=== PATIENT | female | born 1960 | race Caucasian/White ===

== ENCOUNTER → 2018-12-05 | Outpatient (CLI) | payer BC, OTHER ==
[~2018-12-05] MED LIST: DIPH-911 PO
--- NOTE | 2018-12-05 10:34 | RADIOLOGY IMAGING REPORT ---
FACILITY: [facility] [place] PATIENT NAME: Elo Hummel : 1960 MR: [id number] V: [id number] EXAM DATE: ORDERING PHYSICIAN: RENE WATSON TECHNOLOGIST: Location: [facility] Patient: Elo Hummel : 1960 Visit/Account:[id number] Date of Sevice: 12/05/2018 EXAMINATION: MR SPINE LUMBAR W/O CON INDICATION: Low back pain COMPARISON: None available TECHNIQUE: Multiplane MR imaging was performed through the lumbar spine without contrast. FINDINGS: Vertebral bodies and posterior elements: Normal Conus position/signal: Normal Marrow signal: Benign fatty marrow signal seen within multiple vertebral bodies. Extraspinal structures including psoas muscles/paraspinal soft tissues: No significant finding. L1-2: Normal L2-3: Normal. L3-4: Small disc protrusion within the inferior aspects of both foramen. No canal narrowing. Minima l bilateral foraminal narrowing. L4-5: Posterior left disc annular fissure. Small disc protrusion. Mild facet arthropathy. No canal narrowing. Mild to moderate bilateral foraminal narrowing. L5-S1: Small disc protrusion, moderate facet arthropathy, no canal narrowing. Moderate right and mil d to moderate left foraminal narrowing. IMPRESSION: 1. Mild L4-5 and moderate L5-S1 facet arthropathy. 2. Multilevel foraminal narrowing most pronounced at L4-5 and L5-S1, see level by level comments abo ve. 3. Posterior L4-5 disc annular fissure. 4. Otherwise unremarkable lumbar spine MRI. Report Dictated By: Cesar Acosta MD at 12/05/2018 10:22 AM Report E-Signed By: Cesar Acosta MD at 12/05/2018 10:27 AM WSN:[id number]
== END ==
LOC: MRI 01:13
PROVIDERS: ATTEND Neurological Surgery
DX: M46.96 Unspecified inflammatory spondylopathy, lumbar region (principal); M51.35 Other intervertebral disc degeneration, thoracolumbar region
CPT/HCPCS: 72148

== ENCOUNTER → 2018-12-13 | Outpatient (CLI) | payer BC ==
--- NOTE | 2018-12-13 14:05 | RADIOLOGY IMAGING REPORT ---
FACILITY: PATIENT NAME: Elo Hummel : 1960 MR: [id number] V: [id number] EXAM DATE: ORDERING PHYSICIAN: CRUZ BRAN TECHNOLOGIST: Location: [facility] Patient: Elo Hummel : 1960 Visit/Account:[id number] Date of Sevice: 12/13/2018 PELVIC INDICATION: Enlarged uterus on physical exam, COMPARISON: None Available FINDINGS: Uterus measures 5.5 x 2.7 x 4.1 cm and is homogeneous in echotexture. No mass is identified. Double wall endometrial stripe measures 3 mm and is homogeneous There is no free fluid in the cul-de-sac. Urinary bladder is empty. Pelvic vessels appear unremarkable on this examination. Right ovary measures 1.7 x 1.1 x 2.1 cm and shows normal blood flow . Left ovary measures 2.0 x 1.1 x 2.2 cm and shows normal blood flow . IMPRESSION: 1. Pelvic ultrasound is within normal limits Report Dictated By: Charles Rogers at 12/13/2018 1:56 PM Report E-Signed By: Charles Rogers at 12/13/2018 1:58 PM WSN:[id number]
== END ==
LOC: US 01:33
PROVIDERS: ATTEND Family Medicine
DX: N85.2 Hypertrophy of uterus (principal)
CPT/HCPCS: 76830; 76856

== ENCOUNTER → 2018-12-24 | Outpatient (CLI) | payer BC ==
--- NOTE | 2018-12-25 10:46 | RADIOLOGY IMAGING REPORT ---
FACILITY: [facility] PATIENT NAME: BARBARA HILL : [id number] MR: [id number] V: [id number] EXAM DATE: [id number] ORDERING PHYSICIAN: CRZU BRAN TECHNOLOGIST: Sherry Moreno PROCEDURE: BILATERAL DIGITAL SCREENING MAMMOGRAM WITH CAD ASSISTED INTERPRETATION & 3D TOMOSYNTHESIS REASON FOR STUDY: Screening. COMPARISON: 11/12/14, 11/05/14, 02/21/2012. VIEWS OBTAINED: 2D & 3D full field CC & MLO projections. BREAST DENSITY: The breasts have scattered fibroglandular parenchymal densities. MAMMOGRAM FINDINGS: There are no mammographic findings concerning for malignancy. No significant interval change. IMPRESSION: BIRADS 1: Negative. DIAGNOSTIC CATEGORY 1--NEGATIVE. RECOMMENDATIONS: ROUTINE MAMMOGRAM AND CLINICAL EVALUATION IN 1YR. Dictated by: Franklin Gann on 12/25/2018 at 8:56 Transcribed by: BONI on 12/25/2018 at 10:00 Approved by: Franklin Gann on 12/25/2018 at 10:42 [facility]
== END ==
LOC: MAMO 01:05
PROVIDERS: ATTEND Family Medicine
DX: Z12.31 Encounter for screening mammogram for malignant neoplasm of breast (principal)
CPT/HCPCS: 77063; 77067